=== PATIENT | male | born 1990 | race Caucasian/White ===

== ENCOUNTER 2017-05-23 17:51 | Emergency (ER) | payer OTHER ==
[~2017-05-23] VITALS: Wt 94.2 kg
[2017-05-23] MEDS ORDERED: LIDOCAINE 1% (MDV) 20 ML INJ SC ONE (20:00)
[2017-05-23] MEDS ORDERED: IBUP-1542 PO (20:27)
--- NOTE | 2017-05-23 21:19 | ERD ---
ER Documentation Chief Complaint Chief Complaint LAC ON LEFT THUMB HPI A right-hand dominant 27-year-old male is complaining of laceration to his left thumb. Patient stated he happened yesterday at work. Patient works in the restaurant. He was reaching for his knife under a pile of vegetables when he accidentally grabbed the blade of the knife with his left thumb. Bleeding is controlled. Patient continues to work today, only come to the ED this evening. He had tetanus update about 1 year ago. Denies any other injuries. ROS All systems reviewed and are negative except as per history of present illness. Medications Home Meds Active Scripts Ibuprofen* (Motrin*) 600 Mg Tab, 600 MG PO Q6H Y for PAIN AND OR ELEVATED TEMP, #15 TAB Prov:ZOALONA. [employer] 05/23/17 Allergies Allergies: Coded Allergies: No Known Allergy (Unverified , 05/23/17) PMhx/Soc Medical and Surgical Hx: pt denies Medical Hx, pt denies Surgical Hx Hx Alcohol Use: No Hx Substance Use: No Hx Tobacco Use: No Smoking Status: Never smoker Physical Exam Vitals Vital Signs Date Time Temp Pulse Resp B/P Pulse Ox O2 Delivery O2 Flow Rate FiO2 05/23/17 17:53 97.7 61 18 146/88 98 Physical Exam General: Well-developed, well-nourished, conscious and coherent, in no distress Skin: Warm and dry without rash, good texture and turgor Head: Normocephalic without evidence of trauma Eyes: Sclera and conjunctivae normal; pupils equal, round, and reactive to light; extraocular movements are intact Chest: Normal AP diameter. Good expansion without retractions. Nontender. Lungs are clear to auscultate bilaterally with good tidal volume Heart: Regular rate and rhythm. No murmur, rub, or gallops heard Extremities: There is a 0.5 x 1 cm size complete skin avulsion on the ventral distal left thumb. Full range of motion. Good strength bilaterally. No clubbing, cyanosis, or edema. Peripheral pulses are intact. Sensation intact Neuro: Alert and oriented 4, GCS 15. Cranial nerves grossly intact. Motor and sensory exams nonfocal. Moves all extremities. Speech clear. Gait normal Results 24 hrs Current Medications Medications (Trade) Dose Ordered Sig/Thao Route PRN Reason Start Time Stop Time Status Last Admin Dose Admin Lidocaine (Xylocaine 1% (v) 20 ml) 20 ml ONCE ONCE SC 05/23/17 20:00 05/23/17 20:01 DC Procedures/MDM Well-appearing 27-year-old male present ED with skin avulsion of the left thumb. Patient had tetanus update 1 year ago, no update is needed today. Patient's wound is cleansed and dressed in the ED. No other intervention is required. Patient appears well, stable for discharge and outpatient management. Medical decision making shared with patient and family. Education provided to patient and family. Patient and family expressed understanding of the plan. Medications on discharge: Ibuprofen. Follow-up: Primary care provider in 2-3 days or return to ED if worse. Disclaimer: Inadvertent spelling and grammatical errors are likely due to EHR/ dictation software use and do not reflect on the overall quality of patient care. Also, please note that the electronic time recorded on this note does not necessarily reflect the actual time of the patient encounter. Departure Diagnosis: Primary Impression: Avulsion of skin of left thumb without complication Encounter type: initial encounter Qualified Code: S61.002A - Avulsion of skin of left thumb without complication, initial encounter Condition: Stable Patient Instructions: Skin Avulsion [facility] Usted se chiang hecho un examen mdico de control que le indica que no est en tamar condicin que requiera tratamiento urgente en el Departamento de Emergencia. Un estudio ms profundo y el tratamiento de hairston condicin pueden esperar sin ningn riesgo hasta que usted sea atendida/o en el consultorio de hairston mdico o tamar cl anjali. Es responsabilidad suya arreglar tamar marie para el seguimiento del katarina. MANEJO DE CONDICIONES NO URGENTES EN EL FUTURO 1) Si usted tiene un mdico de atencin primaria: Usted debera llamar a hairston mdico de atencin primaria antes de venir al departamento de emergencia. Despus de las horas de consultorio, hairston doctor o hairston asociado/a est disponible por telfono. El mdico o enfermero de he en el servicio telefnico puede asesorarle por letitia medio para atender el problema, o katarina contrario se puede programar tamar marie. 2) Si usted no tiene un mdico de atencin primaria: Llame al mdico o clnica de referencia que aparece abajo hien las horas de consultorio para hacer tamar marie para que le vean. CLINICAS: [place] [id number] [phone] [facility] [id number] [facility] [phone] [address] [place] [address] [phone] [place] [address] [phone] [facility] [phone] [address] Additional Instructions: Llame al doctor nombrado abajo (Referral Sources) MAANA y issa tamar MARIE PARA DENTRO DE TAMAR SEMANA. Dgale a la secretaria que nosotros le instruimos hacer esta marie.Avise o llame si hairston condicin se empeora antes de la marie. ALONA PATHAK NP May 23, 2017 21:17
== END 2017-05-23 21:12 | disposition home or self-care (01) ==
LOC: FTE 17:51
DX: S61.002A Unspecified open wound of left thumb without damage to nail, initial encounter (principal); W26.0XXA Contact with knife, initial encounter; Y92.89 Other specified places as the place of occurrence of the external cause